=== PATIENT | male | born 2005 | race Two or more races ===

== ENCOUNTER 2025-06-01 23:48 | Emergency (ER) | payer MEDICAID, OTHER ==
[~2025-06-01] VITALS: Ht 172.7 cm; Wt 102.1 kg
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
[2025-06-02] MEDS ORDERED: KETOROLAC TROMETH 60MG/2ML VIAL ONE (05:46)
[2025-06-02] MEDS ORDERED: HYDROcodone-ACET 5/325MG TAB ONE (05:46)
[2025-06-02 05:48] VITALS: BP 125/88; PULSE 83; RESP 18; TEMP 98.4; O2SAT 98
[2025-06-02] MEDS: HYDROcodone-ACET 5/325MG TAB PO ONE (05:48)
[2025-06-02] MEDS: KETOROLAC TROMETH 60MG/2ML VIAL IM ONE (05:48)
== END 2025-06-02 05:58 | disposition home or self-care (01) ==
LOC: ER 23:48
DX: M54.50 Low back pain, unspecified (principal); V89.2XXA Person injured in unspecified motor-vehicle accident, traffic, initial encounter; Y93.89 Activity, other specified; Y92.410 Unspecified street and highway as the place of occurrence of the external cause; Y99.8 Other external cause status
CPT/HCPCS: 72070; 72100; 96372; 99284; J1100; J1885